=== PATIENT | female | born 1935 | race Caucasian/White ===

== ENCOUNTER 2018-08-08 07:35 | Emergency (ER) | payer OTHER ==
[2018-08-08] MEDS ORDERED: PROPARACAINE 0.5% 15 ML OPHT DROP ONE (07:38)
[2018-08-08] MEDS ORDERED: FLUORESCEIN SODIUM 1 MG STRIP OP ONE (07:38)
[2018-08-08 07:43] VITALS: BP 154/80
--- NOTE | 2018-08-08 08:35 | EDPHY ---
H & P Stated Complaint: c/o congestion, vocal hoarsness, left eye redness (on meds) since 08/05 Time Seen by Provider: 08/08/18 08:17 HPI/ROS: CHIEF COMPLAINT: Left eye drainage, congestion and hoarseness HISTORY OF PRESENT ILLNESS: 83-year-old female presents with URI symptoms. Onset of nasal congestion and hoarseness 3 days ago, followed by redness and drainage of the left eye. She was seen at urgent care and given a prescription for antibiotic eyedrops. Since then, the drainage from the left eye has subsided. However she continues to have redness below the left eye. The left eyelid redness began 3 days ago as well. No fever. No eye pain, change in vision or pain with eye movement. REVIEW OF SYSTEMS: complete 10 point ROS reviewed and is negative except for the noted elements in the HPI Source: Patient - Personal History Current Tetanus Diphtheria and Acellular Pertussis (TDAP): Yes Tetanus Vaccine Date: 2006 - Medical/Surgical History Hx Asthma: No Hx Chronic Respiratory Disease: No Hx Diabetes: No Hx Cardiac Disease: No Hx Renal Disease: No Hx Cirrhosis: No Hx Alcoholism: No Hx HIV/AIDS: No Hx Splenectomy or Spleen Trauma: No Other PMH: bilat hip replacement, thyroid node removal. - Social History Smoking Status: Never smoked Alcohol Use: Sober Drug Use: None Additional Social History: - Physical Exam Exam: General Appearance: Alert, pleasant, well-appearing, hoarse voice Eyes: Left conjunctival injection, no drainage, erythema in the infraorbital area, without tenderness or warmth; EOMI without pain, globe is soft ENT, Mouth: Mucous membranes moist, no pharyngeal erythema Neck: Normal inspection, no adenopathy or stridor Respiratory: Lungs are clear to auscultation Cardiovascular: Regular rate and rhythm Neurological: A&O, nonfocal, normal gait Skin: Warm and dry, no rash Extremities: Normal inspection Psychiatric: Mood and affect normal Constitutional: Initial Vital Signs Temperature (C) 36.5 C 08/08/18 07:39 Heart Rate 62 08/08/18 07:39 Respiratory Rate 18 08/08/18 07:39 Blood Pressure 154/80 H 08/08/18 07:39 O2 Sat (%) 95 08/08/18 07:39 O2 Delivery Mode Room Air Allergies/Adverse Reactions: No Known Allergies Allergy (Verified 10/22/15 16:19) Home Medications: Medication Instructions Recorded Ascorbic Acid [Vitamin C 500 mg 1,000 mg PO [facility] 10/11/15 (*)] Calcium Carbonate [Tums 500MG (*)] 500 mg PO DAILY 10/11/15 Calcium Carbonate [Tums 500MG (*)] 500 mg PO DAILY PRN 10/11/15 Centrum Silver Women Tablet 1 tab [facility] 10/11/15 Cholecalciferol Vit D3 [Vitamin D3 1,200 units PO [facility]15 (*)] Herbals/Supplements -Info Only 1 ea PO [facility] 10/11/15 Magnesium Oxide [Magnesium Oxide 400 mg [facility] 10/11/15 400 mg (*)] Multivitamins [Multivitamin (*)] 1 tab PO MOT[facility] 10/11/15 [place]-3 Fatty Acids [Fish Oil 1000 1,000 mg PO [facility] mg (*)] Vitamin A 10,000 unit PO [facility] 10/11/15 Vitamin B Complex [B Complex] 1 each PO [facility] Acetaminophen [Tylenol 325mg (*)] 650 mg PO Q6HRS PRN #0 tab 11/22/15 Aspirin [Aspirin 325 mg (*)] 325 mg PO DAILY #0 tab 11/22/15 Clindamycin HCl [Clindamycin] 300 mg PO TID #30 cap 08/08/18 Polymyxin B Sulf/Trimethoprim 08/08/18 Medical Decision Making ED Course/Re-evaluation: This patient presents with periorbital cellulitis and conjunctivitis. The symptoms are improving on polymyxin eyedrops. I will add clindamycin to cover for the periorbital cellulitis. There is no evidence of orbital cellulitis or other serious infection. Warning signs discussed. Departure - Departure Disposition: Home, Routine, Self-Care Clinical Impression: Periorbital cellulitis of left eye, Conjunctivitis Condition: Good Instructions: Periorbital Cellulitis in Adults (ED), Conjunctivitis (ED) Additional Instructions: Continue using the eyedrops as prescribed. Take clindamycin as prescribed. Follow-up for worsening symptoms or any concerns. Referrals: Vania Mae MD [Primary Care Provider] - As per Instructions Prescriptions: Clindamycin HCl [Clindamycin] 300 mg PO TID #30 cap
== END 2018-08-08 08:48 | disposition home or self-care (01) ==
DX: L03.213 Periorbital cellulitis (principal); H10.9 Unspecified conjunctivitis